=== PATIENT | female | born 1965 | race Caucasian/White ===

== ENCOUNTER → 2017-12-23 | Outpatient (CLI) | payer MEDICAID ==
[~2017-12-23] MED LIST: CALC1TAB88 PO; CLON0.5T60 PO; COUMADIN PO; FERR27TA PO; FURO40TA4 PO; GBPN300C PO; HYDR1TAB86 PO; LANS30CA PO; LEVE500T6 PO; LISI20TA PO; METO-333 PO; MIRT15TA6 PO; POTA10TA36 PO
== END ==
LOC: RAD 10:23
PROVIDERS: ATTEND Family Medicine
DX: Z12.31 Encounter for screening mammogram for malignant neoplasm of breast (principal)
CPT/HCPCS: 77067

== ENCOUNTER 2021-01-12 13:02 | Emergency (ER) | payer MEDICAID ==
[~2021-01-12] VITALS: Ht 165.1 cm; Wt 62.6 kg
--- NOTE | 2021-01-12 13:29 | ED General ---
General Chief Complaint: Exposure Stated Complaint: N/V Nursing Triage Note: PT BROUGHT IN BY [facility] WITH COMPLAINT OF DIZZINESS, BLURRED VISION, AND HEADACHE. PT STATES SHE HAS HAD A NATURAL GAS LEAK FROM HER FURNACE THAT WAS CONFIRMED BY THE [email or web address] THIS MORNING. STATES SHE STARTED SMELLING GAS TWO NIGHTS AGO. PTS SON LIVES WITH HER, BUT HAS NOT HAD ANY SYMPTOMS. Nursing Sepsis Screen: No Definite Risk Source of Information: Patient Exam Limitations: No Limitations History of Present Illness Date Seen by Provider: Jan 12, 2021 Time Seen by Provider: 13:10 Initial Comments Patient is a 55-year-old female who presents to the emergency department today with a chief complaint of headache, dizziness,, blurry vision and nausea. Patient states that she had a gas leak from her furnace that was confirmed by the [employer] this morning. Patient states she had onset of symptoms 2 nights ago. Patient states she currently has a headache and feels a little nauseated. She is concerned about her blurry vision. She is quite tearful. She denies any chest pain, shortness of breath. She is not had any coughing or actual vomiting. Patient tells me that she has a history of pulmonary embolisms from 11 years ago and is chronically anticoagulated on Coumadin. Patient states that she has family members that live at home with her none of whom are sick. She has not taken anything for the pain in her head. Patient is not a smoker. All other review of systems reviewed and negative except as stated above. Timing/Duration: 1-2 Days Severity: Moderate Associated Systoms: Headaches, Malaise, Nausea/Vomiting Allergies and Home Medications Allergies Coded Allergies: fentanyl (Verified Allergy, Unknown, 01/12/21) venlafaxine (Verified Allergy, Unknown, 01/12/21) Home Medications Calcium Carbonate/Vitamin D3 1 Each Tablet, 1 EACH PO TID, (Reported) Clonazepam 0.5 Mg/Tab Tab.rapdis, 1 EACH PO BID, (Reported) Ferrous Sulfate 27 Mg Tablet, 18 MG PO TID, (Reported) Furosemide 40 Mg Tablet, 1 EACH PO DAILY, (Reported) Gabapentin 300 Mg Cap, 300 MG PO BID, (Reported) Gabapentin 300 Mg Cap, 600 MG PO HS, (Reported) Hydrocodone Bit/Acetaminophen 1 Each Tablet, 1 EACH PO BID, (Reported) Lansoprazole 30 Mg Capsule.dr, 30 MG PO DAILY, (Reported) Levetiracetam 500 Mg Tablet, 1 EACH PO TID, (Reported) Lisinopril 20 Mg Tablet, 30 MG PO DAILY, (Reported) Metoprolol Tartrate 25 Mg Tablet, 12.5 MG PO DAILY, (Reported) Mirtazapine 15 Mg Tablet, 1 EACH PO HS, (Reported) Potassium Chloride 10 Meq Tab.prt.sr, 1 EACH PO BID WITH MEALS, (Reported) [Coumadin] , PO DAILY, (Reported) Patient Home Medication List Home Medication List Reviewed: Yes Review of Systems Review of Systems Constitutional: see HPI, malaise EENTM: blurred vision Respiratory: no symptoms reported Cardiovascular: no symptoms reported Gastrointestinal: no symptoms reported Genitourinary: no symptoms reported Musculoskeletal: no symptoms reported Skin: no symptoms reported Psychiatric/Neurological: Headache All Other Systems Reviewed Negative Unless Noted: Yes Past Qumwqme-Bwxrlu-Onoalt Hx Patient Social History Alcohol Use: Denies Use Smoking Status: Former Smoker Recent Infectious Disease Expo: No Recent Hopitalizations: No Immunizations Up To Date Tetanus Booster (TDap): Unknown Seasonal Allergies Seasonal Allergies: No Past Medical History Surgeries: Yes Respiratory: Yes Cardiac: Yes Neurological: Yes Reproductive Disorders: Yes Sexually Transmitted Disease: No Gastrointestinal: No Musculoskeletal: No Endocrine: No Psychosocial: Yes Blood Disorders: Yes Physical Exam Vital Signs Vital Signs - First Documented 01/12/21 13:02 Temp 36.9 Pulse 86 Resp 17 B/P (MAP) 147/97 (114) Pulse Ox 98 O2 Delivery Room Air Capillary Refill : Less Than 3 Seconds Height, Weight, BMI Height: '" Weight: lbs. oz. kg; 22.00 BMI Method: General Appearance: No Apparent Distress, WD/WN, Anxious Eyes: Bilateral Eye Normal Inspection, Bilateral Eye PERRL, Bilateral Eye EOMI HEENT: PERRL/EOMI Neck: Normal Inspection Respiratory: Lungs Clear, Normal Breath Sounds, No Accessory Muscle Use, No Respiratory Distress Cardiovascular: Regular Rate, Rhythm Gastrointestinal: Normal Bowel Sounds, Non Tender, Soft Extremity: Normal Inspection, Normal Range of Motion, Non Tender, No Calf Tenderness Neurologic/Psychiatric: Alert, Oriented x3, No Motor/Sensory Deficits, Normal Mood/Affect Skin: Normal Color, Warm/Dry Progress/Results/Core Measures Suspected Sepsis Recent Fever Within 48 Hours: No Infection Criteria Present: None New/Unexplained Altered Menta: No Sepsis Screen: No Definite Risk SIRS Temperature: Pulse: 86 Respiratory Rate: 17 Blood Pressure 147 /97 Mean: 114 Results/Orders Lab Results Laboratory Tests Test 01/12/21 13:47 Range/Units Carboxyhemoglobin 4.0 H 0.5-2.5 % My Orders Orders - MARYCRUZ RITCHIE MD Carboxyhemoglobin (01/12/21 13:16) Acetaminophen Tablet (Tylenol Tablet) (01/12/21 13:45) Ondansetron Oral Dissolve Tab (Zofran (01/12/21 13:45) Vital Signs/I&O 01/12/21 13:02 Temp 36.9 Pulse 86 Resp 17 B/P (MAP) 147/97 (114) Pulse Ox 98 O2 Delivery Room Air Capillary Refill : Less Than 3 Seconds Blood Pressure Mean: 114 Departure Impression Primary Impression: Carboxyhemoglobinemia Qualified Codes: T58.91XA - Toxic effect of carbon monoxide from unspecified source, accidental (unintentional), initial encounter Disposition: HOME, SELF-CARE Condition: Stable Departure-Patient Inst. Decision time for Depature: 14:02 Referrals: GRACIA BRAGA DO (PCP/Family) Primary Care Physician Patient Instructions: Carbon Monoxide Poisoning Add. Discharge Instructions: Make sure that your gas is fixed before turning it back on. Tylenol every 4 - 6 hours as needed for headache. Drink plenty of fluids to stay well hydrated. Return to the Emergency Department for any worsening headache, vomiting, passing out spells or other emergent, concerning symptoms. MARYCRUZ RITCHIE MD Jan 12, 2021 13:29
[2021-01-12] MEDS ORDERED: ACETAMINOPHEN 500 MG TAB (TYLENOL) PO ONE (13:45)
[2021-01-12] MEDS ORDERED: ONDANSETRON 4 MG (ZOFRAN) ORAL DISSOLVE TAB PO ONE (13:45)
[2021-01-12 14:30] VITALS: BP 138/89
== END 2021-01-12 14:30 | disposition home or self-care (01) ==
LOC: EDUNIT# 13:02 → ER 13:11
DX: T58.91XA Toxic effect of carbon monoxide from unspecified source, accidental (unintentional), initial encounter (principal); Z88.8 Allergy status to other drugs, medicaments and biological substances; Z87.891 Personal history of nicotine dependence
CPT/HCPCS: 82375; 99283